=== PATIENT | male | born 1970 | race African-American/Black ===

== ENCOUNTER 2020-09-23 14:36 | Day surgery (SDC) | payer MEDICARE, OTHER ==
[~2020-09-23] VITALS: Ht 172.7 cm; Wt 64.9 kg
[~2020-09-23 14:36] MED LIST: AMLO-211 PO; BUPIVACAINE/PF 0.25% ONE; CINA90TA PO; CLON0.1T22 PO; HEPARIN 1,000 UNITS/ML, 10ML ONE; METO50TA82 PO; SEVE800T8 PO
[2020-09-23] MEDS ORDERED: SODIUM CHLORIDE 0.9% 1,000 ML IV SCH (15:00)
[2020-09-23] MEDS ORDERED: CHLORHEXIDINE 15 ML UDC MM ONE (15:00)
[2020-09-23] MEDS ORDERED: CHLORHEXIDINE 15 ML UDC ONE (15:03)
[2020-09-23] MEDS ORDERED: PROPOFOL 10 MG/ML, 20ML ONE (16:59)
[2020-09-23] MEDS ORDERED: CEFAZOLIN 1,000 MG ONE (16:59)
[2020-09-23] MEDS ORDERED: GLYCOPYRROLATE 0.2MG/1ML, 5ML ONE (16:59)
[2020-09-23] MEDS ORDERED: SUCCINYLCHOLINE 20 MG/ML, 10ML ONE (16:59)
[2020-09-23] MEDS ORDERED: NEOSTIGMINE 1 MG/ML, 10ML ONE (16:59)
[2020-09-23] MEDS ORDERED: FENTANYL PF 250 MCG/5ML ONE (17:06)
[2020-09-23] MEDS ORDERED: FENTANYL PF 100 MCG/2ML ONE ×2 (17:56)
[2020-09-23] MEDS ORDERED: PROTAMINE SULFATE 10 MG/ML, 5ML ONE (18:26)
[2020-09-23] MEDS ORDERED: FENTANYL PF 100 MCG/2ML IV PRN (19:00)
[2020-09-23] MEDS ORDERED: HYDROmorphone 1 MG/ML, 1ML INJ IVPush PRN (19:00)
[2020-09-23] MEDS ORDERED: hydrALAzine 20 MG/ML, 1ML IV PRN (19:00)
[2020-09-23] MEDS ORDERED: OXYcodone 5 MG/5 ML ORAL.SOL UDC PO PRN (19:00)
[2020-09-23] MEDS ORDERED: ONDANSETRON 2MG/ML, 2ML IVPush PRN (19:00)
[2020-09-23] MEDS ORDERED: LABETALOL 5MG/ML, 20ML IV PRN (19:00)
== END 2020-09-23 21:20 | disposition home or self-care (01) ==
LOC: OR 14:36
PROVIDERS: ATTEND Surgery
DX: I77.0 Arteriovenous fistula, acquired (principal); I12.0 Hypertensive chronic kidney disease with stage 5 chronic kidney disease or end stage renal disease; N18.6 End stage renal disease; F12.90 Cannabis use, unspecified, uncomplicated; Z79.899 Other long term (current) drug therapy; Z98.890 Other specified postprocedural states; Z72.89 Other problems related to lifestyle; Z82.49 Family history of ischemic heart disease and other diseases of the circulatory system; Z83.3 Family history of diabetes mellitus
CPT/HCPCS: 36415; 36832; 80047; J0330; J0690; J1644; J2704; J2710; J3010; J7030; J2720